=== PATIENT | male | born 1995 | race American Indian/Alaskan Native ===

== ENCOUNTER 2017-01-25 13:20 | Emergency (ER) | payer SELFPAY ==
[2017-01-25 13:32] VITALS: BP 116/69
--- NOTE | 2017-01-25 15:22 | Emergency Department Report ---
Entered by GREGORY BEAVERS, acting as scribe for RALF WALTERS PA. Abscess Boil HPI - HPI Chief Complaint: Skin/Abscess/Foreign Body Stated Complaint: BUMP ON EYE Time Seen by Provider: 01/25/17 13:36 Duration: 2 Days Location: Head (right temporal) Severity: Mild (5 out of 10 with touch.) History: Yes Pain (temporal area bump), No Fever, No Purulent Drainage, No Numbness, No Foreign Body, No Previous History, No Insect Bite HPI: 21 y/o male with no significant PMHx presents to the ED c/o a bump on right temporal area of head that began 2 days ago. Rates associated pain a 5/10 in severity. Denies redness, drainage, numbness, tingling, fever, chills, nasuea , and vomiting. Denies any insect bite. Denies taking OTC medication or applying warm compresses. NKDA. Home Medications: Previous Rx's Medication Instructions Recorded Last Taken Type Cephalexin [Keflex] 500 mg PO Q8HR #21 cap 01/25/17 Unknown Rx Ibuprofen [Motrin] 600 mg PO Q8H PRN #15 tablet 01/25/17 Unknown Rx Allergies/Adverse Reactions: Allergies Allergy/AdvReac Type Severity Reaction Status Date / Time No Known Allergies Allergy Unverified 01/25/17 13:32 ED Review of Systems ROS: Stated complaint: BUMP ON EYE Other details as noted in HPI Comment: All other systems reviewed and negative Constitutional: no symptoms reported. denies: chills, fever Eyes: denies: eye discharge ENT: denies: ear pain, throat pain, congestion Respiratory: no symptoms reported Cardiovascular: denies: chest pain, palpitations, edema, syncope Gastrointestinal: denies: nausea, vomiting Skin: other (bump on right temporal area of head with no redness or drainage) Neurological: denies: headache ED Past Medical Hx - Past Medical History Previous Medical History?: No - Surgical History Past Surgical History?: No - Family History Family history: no significant - Social History Smoking Status: Current Every Day Smoker Substance Use Type: None - Medications Home Medications: Home Medications Medication Instructions Recorded Confirmed Last Taken Type Cephalexin [Keflex] 500 mg PO Q8HR #21 cap 01/25/17 Unknown Rx Ibuprofen [Motrin] 600 mg PO Q8H PRN #15 tablet 01/25/17 Unknown Rx ED Abscess Boil Physical Exam - Exam General: Vital signs noted. No distress. Alert and acting appropriately. General: well nourished, well developed, nontoxic in appearance, in no acute distress Size: 1 cm (Pustule) Exam: Yes Tenderness (Rt Yarsani), Yes Fluctuance (mild fluctuance Center. Indurated area without any fluctuance), Yes Surrounding Cellulites/Erythema ( mild erythema.), Yes Normal Neurologic Exam (alert and oriented 3, GCS 15. Normal gait.), Yes Normal Circulation, No Lymphangitis, No Crepitation, No Heart Murmur (S1 and S2, regular rate rhythm, no murmur.) Exam: Head: Normocephalic, atraumatic. Mouth: mucous membranes are moist. Nose : Normal external appearance, no drainage. Neck: Supple. Nontender to palpation. no adenopathy. Ears: Normal external appearance. Abdomen: Soft, nondistended. Eyes: Bilateral pupils equal and reactive to light, bilateral EOM intact. Normal accommodation. Lungs: Clear to auscultation bilaterally, no rhonchi, wheezes, or rales. Extremities: No CCE. +2 pulses. No neurovascular compromise. Cardiovascular: S1-S2, regular rate, regular rhythm. No murmurs. Psych: Normal mood and behavior I & D Note - I & D Note I & D Note: One centimeter, indurated pustule to right temporal area. Palpate with mild fluctuance Center. Area cleansed with iodine and normal saline and 18 -gauge needle placed to Center fluctuance with small amount of thick pus drained from site. Stable areas of induration without fluctuance. Tetanus vaccine is up-to-date. Mild cellulitic area surrounding induration. Area covered with sterile dressing. Patient tolerated procedure well. ED Course Vital Signs 01/25/17 13:28 Temperature 98.4 F Pulse Rate 66 Respiratory 17 Rate Blood Pressure 116/69 O2 Sat by Pulse 97 Oximetry - Reevaluation(s) Reevaluation #1: 01/25/17 15:05 See procedure note an incision and drainage area for drainage Critical care attestation.: If time is entered above; I have spent that time in minutes in the direct care of this critically ill patient, excluding procedure time. ED Medical Decision Making - Medical Decision Making ED course: Patient with pustule, cellulitis with incision and drainage. I encouraged him to keep affected area clean and dry, apply warm compresses 3-4 times a day and to take antibiotic as prescribed. See procedure note for detail. Patient said his tetanus vaccine is less than 5 years. I explain diagnosis and treatment plan and patient reports understanding. Instructed to follow-up with his primary care physician in 3-5 days and if he does not have one to follow-up with [facility]. Given prescription for Motrin and Keflex. ED Disposition Clinical Impression: Simple abscess, Encounter for incision and drainage procedure, Skin pustule Disposition: DISCHARGED TO HOME OR SELFCARE Is pt being admited?: No Does the pt Need Aspirin: No Condition: Stable Instructions: Abscess Incision and Drainage (ED), Cellulitis (ED) Additional Instructions: keep affected area clean and dry Take antibiotic as prescribed Plan warm compresses to the area 3-4 times a day to facilitate drainage. Prescriptions: Cephalexin [Keflex] 500 mg PO Q8HR #21 cap Ibuprofen [Motrin] 600 mg PO Q8H PRN #15 tablet PRN Reason: Pain Referrals: [facility] [Outside] - 01/29/17 PRIMARY CARE, [Primary Care Provider] - 01/29/17 Forms: Work/School Release Form(ED) This documentation as recorded by the RUTHANN gallagher JASMINE,accurately reflects the service I personally performed and the decisions made by me,RALF WALTERS PA.
== END 2017-01-25 15:46 | disposition home or self-care (01) ==
LOC: ED 13:20
DX: L02.01 Cutaneous abscess of face (principal); F17.200 Nicotine dependence, unspecified, uncomplicated